=== PATIENT | female | born 1965 | race Caucasian/White ===

== ENCOUNTER 2024-12-03 07:15 | Inpatient (IN) | payer OTHER ==
[~2024-12-03] VITALS: Ht 152.4 cm; Wt 83.9 kg
[2024-12-03 08:20] VITALS: BP 153/79
[2024-12-09] MEDS ORDERED: CEFAZOLIN SODIUM 1,000 MG VIAL IV ONE (13:45)
[2024-12-09] MEDS ORDERED: POTASSIUM CHLORIDE-0.45% NACL 20 MEQ/1,000 ML PIGGYBAG IV NR (15:45)
[2024-12-09] MEDS ORDERED: OxyCODONE HCL/APAP UD (PERCOCET) PO PRN (15:45)
[2024-12-09] MEDS ORDERED: MEPERIDINE HCL/PF 50 MG/ML VIAL IM PRN (15:45)
[2024-12-09] MEDS ORDERED: MORPHINE SULFATE 4 MG/ML VIAL IV ONE ×2 (16:05→16:35)
[2024-12-09] MEDS ORDERED: CEFAZOLIN SODIUM 1,000 MG VIAL IV SCH (17:00)
[2024-12-09] MEDS ORDERED: ENALAPRILAT DIHYDRATE 1.25 MG/ML VIAL IV PRN (19:30)
[2024-12-09] MEDS ORDERED: DEXTROSE 50 % IN WATER 0.5 G/ML DISP.SYRIN IV PRN (19:30)
[2024-12-09] MEDS ORDERED: INSULIN LISPRO 1,000 UNIT/10 ML UNITS SUBCUTANEO PRN (19:30)
[2024-12-09] MEDS ORDERED: FAMOTIDINE/PF 20 MG/2 ML VIAL IV SCH (21:00)
[2024-12-10 00:12] VITALS: BP 115/68; O2SAT 100
[2024-12-10 08:00] VITALS: BP 128/78; O2SAT 95
[2024-12-10] MEDS ORDERED: AMLODIPINE BESYLATE 10 MG TABLET PO SCH (09:00)
== END 2024-12-10 11:58 | disposition home or self-care (01) | DRG 581 ==
LOC: O/R 12-09 06:08 → SURH 12-09 07:15
PROVIDERS: ADMIT Specialist; ATTEND Specialist
PROC: 0HBU0ZZ Excision of Left Breast, Open Approach (ICD-10-PCS; 2024-12-09)
PROC: BH01ZZZ Plain Radiography of Left Breast (ICD-10-PCS; 2024-12-09)
PROC: 07B60ZZ Excision of Left Axillary Lymphatic, Open Approach (ICD-10-PCS; principal; 2024-12-09 12:15)
DX: D05.12 Intraductal carcinoma in situ of left breast (principal)

== ENCOUNTER 2025-03-23 11:01 | Outpatient (CLI) | payer OTHER ==
[~2025-03-23 11:01] MED LIST: METFORMIN HCL500 M3; NORVASC10 MG
== END 2025-03-23 11:02 | disposition home or self-care (01) ==
LOC: NUCLEAR 11:01
PROVIDERS: ATTEND Internal Medicine Hematology & Oncology
DX: I50.89 Other heart failure (principal)

== ENCOUNTER 2025-03-31 06:00 | Day surgery (SDC) | payer OTHER ==
[2025-03-23 10:11] LABS: URINE APPEARANCE Clear; URINE BILIRRUBIN Negative (NEGATIVE); URINE BLOOD Negative; URINE COLOR Yellow; URINE GLUCOSE Negative (NEGATIVE); URINE KETONE Trace (NEGATIVE); URINE LEUKOCYTE Trace; URINE NITRATE Negative; URINE PROTEIN Trace (NEGATIVE); URINE UROBILINOGEN 1.0 E.U./dl
[2025-03-23 10:13] VITALS: BP 145/84
[2025-03-23 10:15] LABS: BASO % 0.1 % (0.1-1.2); EOS # 0.09 (0.04-0.54); EOS % 0.6 % (0.7-7.0); LYMPH # 1.90 (1.18-3.74); LYMPH % 12.8 % (19.3-53.1); MEAN PLATELET VOLUME 10.00 fl (9.4-12.4); MONO # 0.69 (0.24-0.82); MONO % 4.7 % (4.7-12.5); NEUT # 12.08 (1.56-6.13); NEUT % 81.5 % (34.0-71.1); RED CELL DISTRIBUTION WIDTH 12.1 % (11.6-14.4)
[2025-03-23 10:16] LABS: URINE BACTERIA 3937.4 uL (0.0-1933); URINE EPITHELIAL CELLS 28.6 uL (0.0-38.8); URINE RBC 7.5 uL (0.0-20.8); URINE WBC 44.0 uL (0.0-23.2)
[2025-03-23 10:44] LABS: URINE CAST 0.73 uL (0.0-1.40)
[2025-03-23 10:54] LABS: ALT/SGPT 26.0 U/L (12-78); AST/SGOT 16.0 U/L (15-37); BILIRUBIN TOTAL 0.75 mg/dL (0.3-1.2); BUN CREA RATIO 13.0 (7.0-25.0); CREATININE SERUM 0.91 mg/dL (0.55-1.02); GFR 63.72; GLOBULINA 3.5 G/DL (2.4-3.5); GLUCOSE FASTING 173.0 mg/dL (65-100); OSMOLALITY SERUM 287.0 MOSM/KG (275-295)
[2025-03-23 10:56] LABS: INR 0.99
[~2025-03-31] VITALS: Ht 165.1 cm; Wt 93.4 kg
[2025-03-31] MEDS ORDERED: LIDOCAINE HCL 1% 20 ML VIAL IJ ONE (10:30)
[2025-03-31] MEDS ORDERED: CEFAZOLIN SODIUM 1,000 MG VIAL IV ONE (10:30)
[2025-03-31] MEDS ORDERED: HEPARIN SODIUM,PORCINE 500 UNITS/5 ML VIAL IV ONE (10:30)
[2025-03-31] MEDS ORDERED: MORPHINE SULFATE 4 MG/ML VIAL IV ONE (11:45)
[2025-03-31] MEDS ORDERED: FAMOTIDINE/PF 20 MG/10 ML SYRINGE IV SCH (13:45)
[2025-03-31] MEDS ORDERED: CEFAZOLIN SODIUM 1,000 MG VIAL IV SCH (13:45)
== END 2025-03-31 15:50 | disposition home or self-care (01) ==
LOC: CIR.AMB 06:00
PROVIDERS: ATTEND Specialist
DX: C50.212 Malignant neoplasm of upper-inner quadrant of left female breast (principal)